=== PATIENT | female | born 1950 ===

== ENCOUNTER 2017-08-09 01:57 | Observation (INO) ==
--- NOTE | 2017-08-09 02:37 | Emergency Department Note ---
Disposition Clinical Impression: Stroke-like symptoms, Left facial numbness, Left arm numbness Disposition: Admitted As Inpatient Condition: Fair Referrals: Alfred Kaur MD [Primary Care Provider] - Forms: ED Satisfaction Letter, Work/School Release Time of Disposition: 04:38 General Adult HPI - General Chief complaint: ED General Medical Stated complaint: "Facial and Left Arm Numbness" Time Seen by Provider: 08/09/17 02:05 Source: patient Mode of arrival: ambulatory Limitations: no limitations Nursing Notes Reviewed: Yes Vital Signs Reviewed: Yes - History of Present Illness HPI Narrative: Patient is a 67-year-old female that presents to the emergency department for numbness to her left face and left arm. She states that this began approximately 36 hours ago after receiving an injection in her left shoulder. Patient states that she felt that her symptoms may be related to the injection. She called her doctor and he told her that the symptoms should not be present after the injection and told her if they have persisted to go to the emergency department. Patient denies any numbness, weakness or tingling outside of the face and left arm. Patient denies any issues with speech. Pain Scale: 1 - Related Data Home Medications Medication Instructions Recorded Confirmed Estradiol [Estrace] 1 mg PO DAILY 01/30/16 01/30/16 Levothyroxine Sodium [Levoxyl] 125 mcg PO DAILY 01/30/16 01/30/16 Lipase/Protease/Amylase [Creon Dr 2 tab PO TID 01/30/16 01/30/16 24,000 Units Capsule] Metoprolol Succinate [Toprol Xl] 50 mg PO DAILY 01/30/16 01/30/16 Rizatriptan Benzoate [Maxalt] 10 mg PO DAILY PRN 01/30/16 01/30/16 Allergies Allergy/AdvReac Type Severity Reaction Status Date / Time moxifloxacin [From Avelox] Allergy Rash Verified 01/30/16 10:39 ivp dye Allergy Rash Uncoded 01/30/16 10:39 All systems ED: reviewed and negative except as stated. Constitutional: Denies: fever, chills Cardiovascular: Denies: chest pain Respiratory: Denies: dyspnea Gastrointestinal: Denies: abdominal pain, nausea, vomiting Genitourinary: Denies: urgency, dysuria, frequency Neurological: Reports: numbness (Left face and left arm.). Denies: headache, weakness, paresthesias Past Medical History - Past Medical History Medical history: Reports: hypertension, thyroid disease Surgical history: Reports: hysterectomy Psychiatric history: Reports: no psych history - Social History Smoking Status: Never smoker Smokeless Tobacco Status: No Alcohol use: Reports: none Drug use: Reports: none Physical Exam - General Limitations: no limitations General appearance: alert, in no apparent distress - Head Head exam: atraumatic, normocephalic - Eye Eye exam: Present: normal appearance, EOMI - Neck Neck exam: Present: normal inspection, full ROM, trachea midline - Respiratory Respiratory exam: Present: normal lung sounds bilaterally. Absent: respiratory distress, wheezes - Cardiovascular Cardiovascular exam: Present: regular rate, normal rhythm, normal heart sounds, +S1, +S2 - Abdominal Exam Abdominal exam: Present: soft, Non-Tender, normal bowel sounds - Neurological Exam Neurological exam: Present: alert, oriented X3 - Expanded Neurological Exam Speech: Present: fluid speech Cranial nerves: EOM function (II, III, IV, ): Normal, facial sensation (V): Abnormal Left, facial palsy (VII): Normal, gag reflex (IX): Normal, spinal accessory function (XI): Normal, tongue deviation (XII): Normal Cerebellar function: finger to nose: Normal, heel to julien: Normal Motor strength - LUE: 5/5 Motor strength - RUE: 5/5 Motor strength - LLE: 5/5 Motor strength - RLE: 5/5 Upper motor neuron exam: pronator drift: Absent bilaterally Sensory exam upper extremity: light touch: Abnormal Left Sensory exam lower extremity: light touch: Normal Coma Scale Eye Opening: Spontaneous Coma Scale Motor Response: Obeys Commands Coma Scale Verbal Response: Oriented Coma Scale Total: 15 - Psychiatric Psychiatric exam: Present: normal affect, normal mood - Skin Skin exam: Present: warm, dry, intact Course Vital Signs Temperature 97.6 F 08/09/17 01:59 Pulse Rate 59 08/09/17 01:59 Respiratory Rate 18 08/09/17 01:59 Blood Pressure 157/79 08/09/17 01:59 O2 Sat by Pulse Oximetry 97 08/09/17 01:59 Temperature 97.6 F 08/09/17 02:13 Pulse Rate 83 08/09/17 03:14 Respiratory Rate 08/09/17 03:14 Blood Pressure 121/73 08/09/17 03:14 O2 Sat by Pulse Oximetry 97 08/09/17 03:14 Oxygen Delivery Oxygen Delivery Room Air Medical Decision Making - MDM Narrative Medical decision making narrative: Due to the patient presenting to the emergency department with neurologic symptoms the face and left arm there is concern for possible stroke. We will obtain Junior for testing including a CBC, BMP, troponin chest x-ray, EKG, CT of the patient's head to evaluate for possible intracranial abnormality. Due to these patient's symptoms beginning approximately 36 hours ago the patient was outside any window for TPA so no stroke alert was called. The only deficits that the patient had at this time was numbness to the left side of the face and left arm. CT scan showed no acute intracranial abnormality. Chest x- ray did not show any acute process. Patient's EKG showed a sinus bradycardia. Rate of her laboratory testing was unremarkable. However due to the patient having numbness to the face and left arm there is concern for neurologic symptoms the patient will need to be admitted to the hospital for further evaluation and management. I called and spoke with Dr. Cuevas and he has accepted the patient to his service. The patient will be admitted to the hospital at this time for further evaluation and management. - Medical Records Medical records reviewed: Yes I reviewed the patient's medical records. - Lab Data Lab results reviewed: Yes I reviewed the patient's lab results. Result diagrams: 08/09/17 02:29 08/09/17 02:29 Lab Results 08/09/17 08/09/17 08/09/17 Range/Units 02:29 02:29 02:29 WBC 11.0 (4.3-11.1) K/mcL RBC 4.72 (3.82-4.97) M/mcL Hgb 15.3 (11.5-15.4) g/dL Hct 44.0 (35.3-44.9) % MCV 93.2 (83.0-100.0) fL MCH 32.4 (28.0-33.3) pg MCHC 34.8 (31.6-35.5) g/dL RDW 12.4 (11.5-14.5) % Plt Count 236 (140-400) K/mcL MPV 9.3 L (9.4-12.4) fL Immature Gran % 0.4 (0-4) % Seg Neutrophils % 64.8 % Lymphocytes % 24.8 % Monocytes % 7.3 % Eosinophils % 2.2 % Basophils % 0.5 % Neutrophils # 7.2 (1.6-8.9) K/mcL Lymphocytes # 2.7 (0.6-4.6) K/mcL Monocytes # 0.8 (0.0-1.3) K/mcL Eosinophils # 0.2 (0.0-0.6) K/mcL Basophils # 0.1 (0.0-0.2) K/mcL PT 10.6 (9.4-12.1) Seconds INR 1.0 APTT 32.5 (26.0-36.0) Seconds Sodium 138 (136-145) mEq/L Potassium 3.9 (3.5-5.1) mEq/L Chloride 103 (98-107) mEq/L Carbon Dioxide 26 (23-29) mEq/L BUN 26 H (8-23) mg/dL Creatinine 0.94 (0.60-1.20) mg/dL Est GFR ( Amer) > 60 (> 60) Est GFR (Non-Af Amer) 59 L (> 60) BUN/Creatinine Ratio 28 H (6-26) Glucose 101 (70-105) mg/dL Calculated Osmolality 291 (280-300) Calcium 10.0 (8.6-10.3) mg/dL Troponin I < 0.03 (< 0.04) ng/mL - Radiology Data Radiology results reviewed: Yes I reviewed the patient's radiology results. Head CT 08/09/17 02:16 IMPRESSION: No acute intracranial abnormality. D/ / Francois Wynn MD / Francois Wynn MD Interpreting Provider: Francois Wynn MD Chest X-Ray 08/09/17 02:45 IMPRESSION: 1. No acute cardiopulmonary disease. D/ / Francois Wynn MD / Francois Wynn MD Interpreting Provider: Francois Wynn MD - EKG Data EKG #1 EKG attestation: Yes I reviewed and interpreted this EKG. EKG results narrative: EKG shows a sinus bradycardia at a rate of 51 bpm, NM interval of 181, QRS duration of 97, QTc of 415 with a normal axis. No evidence of STEMI and EKG.
[2017-08-09 02:42] LABS: Basophils # 0.1 K/mcL (0.0-0.2); Basophils % 0.5 %; Eosinophils # 0.2 K/mcL (0.0-0.6); Eosinophils % 2.2 %; Hemoglobin 15.3 g/dL (11.5-15.4); Immature Granulocytes % 0.4 % (0-4); Lymphocytes # 2.7 K/mcL (0.6-4.6); Lymphocytes % 24.8 %; Mean Corpuscular HGB Conc 34.8 g/dL (31.6-35.5); Mean Corpuscular Hemoglobin 32.4 pg (28.0-33.3); Mean Corpuscular Volume 93.2 fL (83.0-100.0); Mean Platelet Volume 9.3 fL (9.4-12.4); Monocytes # 0.8 K/mcL (0.0-1.3); Monocytes % 7.3 %; Neutrophils # 7.2 K/mcL (1.6-8.9); Platelet Count 236 K/mcL (140-400); Red Blood Count 4.72 M/mcL (3.82-4.97); Red Cell Distribution Width 12.4 % (11.5-14.5); Segmented Neutrophils % 64.8 %
[2017-08-09 02:48] LABS: Prothrombin Time 10.6 Seconds (9.4-12.1)
[2017-08-09 02:50] LABS: Activated Partial Thrombo Time 32.5 Seconds (26.0-36.0)
[2017-08-09 03:04] LABS: BUN/Creatinine Ratio 28 (6-26); Blood Urea Nitrogen 26 mg/dL (8-23); Carbon Dioxide 26 mEq/L (23-29); Chloride 103 mEq/L (98-107); Glucose 101 mg/dL (70-105); Osmolality,Calculated 291 (280-300); Potassium 3.9 mEq/L (3.5-5.1); Sodium 138 mEq/L (136-145); eGFR For African Americans > 60 (> 60); eGFR For Non-African Americans 59 (> 60)
[2017-08-09 03:05] LABS: Troponin I < 0.03 ng/mL (< 0.04)
--- NOTE | 2017-08-09 04:17 | Emergency Department Note ---
Disposition Clinical Impression: Stroke-like symptoms, Left facial numbness, Left arm numbness Disposition: Admitted As Inpatient Condition: Fair Referrals: Alfred Kaur MD [Primary Care Provider] - Forms: ED Satisfaction Letter, Work/School Release General Adult HPI - General Chief complaint: ED General Medical Stated complaint: "Facial and Left Arm Numbness" Time Seen by Provider: 08/09/17 02:05 Source: patient Mode of arrival: ambulatory Limitations: no limitations Nursing Notes Reviewed: Yes Vital Signs Reviewed: Yes - History of Present Illness Pain Scale: 1 - Related Data Home Medications Medication Instructions Recorded Confirmed Estradiol [Estrace] 1 mg PO DAILY 01/30/16 01/30/16 Levothyroxine Sodium [Levoxyl] 125 mcg PO DAILY 01/30/16 01/30/16 Lipase/Protease/Amylase [Creon Dr 2 tab PO TID 01/30/16 01/30/16 24,000 Units Capsule] Metoprolol Succinate [Toprol Xl] 50 mg PO DAILY 01/30/16 01/30/16 Rizatriptan Benzoate [Maxalt] 10 mg PO DAILY PRN 01/30/16 01/30/16 Allergies Allergy/AdvReac Type Severity Reaction Status Date / Time moxifloxacin [From Avelox] Allergy Rash Verified 01/30/16 10:39 ivp dye Allergy Rash Uncoded 01/30/16 10:39 Constitutional: Denies: fever, chills Cardiovascular: Denies: chest pain Respiratory: Denies: dyspnea Gastrointestinal: Denies: abdominal pain, nausea, vomiting Genitourinary: Denies: urgency, dysuria, frequency Neurological: Reports: numbness (Left face and left arm.). Denies: headache, weakness, paresthesias Past Medical History - Past Medical History Medical history: Reports: hypertension, thyroid disease Surgical history: Reports: hysterectomy Psychiatric history: Reports: no psych history - Social History Smoking Status: Never smoker Smokeless Tobacco Status: No Alcohol use: Reports: none Drug use: Reports: none Physical Exam - General Limitations: no limitations General appearance: alert, in no apparent distress Course Vital Signs Temperature 97.6 F 08/09/17 01:59 Pulse Rate 59 08/09/17 01:59 Respiratory Rate 18 08/09/17 01:59 Blood Pressure 157/79 08/09/17 01:59 O2 Sat by Pulse Oximetry 97 08/09/17 01:59 Temperature 97.6 F 08/09/17 02:13 Pulse Rate 83 08/09/17 03:14 Respiratory Rate 18 08/09/17 03:14 Blood Pressure 121/73 08/09/17 03:14 O2 Sat by Pulse Oximetry 97 08/09/17 03:14 Oxygen Delivery Oxygen Delivery Room Air Medical Decision Making - Lab Data Result diagrams: 08/09/17 02:29 08/09/17 02:29 Lab Results 08/09/17 08/09/17 08/09/17 Range/Units 02:29 02:29 02:29 WBC 11.0 (4.3-11.1) K/mcL RBC 4.72 (3.82-4.97) M/mcL Hgb 15.3 (11.5-15.4) g/dL Hct 44.0 (35.3-44.9) % MCV 93.2 (83.0-100.0) fL MCH 32.4 (28.0-33.3) pg MCHC 34.8 (31.6-35.5) g/dL RDW 12.4 (11.5-14.5) % Plt Count 236 (140-400) K/mcL MPV 9.3 L (9.4-12.4) fL Immature Gran % 0.4 (0-4) % Seg Neutrophils % 64.8 % Lymphocytes % 24.8 % Monocytes % 7.3 % Eosinophils % 2.2 % Basophils % 0.5 % Neutrophils # 7.2 (1.6-8.9) K/mcL Lymphocytes # 2.7 (0.6-4.6) K/mcL Monocytes # 0.8 (0.0-1.3) K/mcL Eosinophils # 0.2 (0.0-0.6) K/mcL Basophils # 0.1 (0.0-0.2) K/mcL PT 10.6 (9.4-12.1) Seconds INR 1.0 APTT 32.5 (26.0-36.0) Seconds Sodium 138 (136-145) mEq/L Potassium 3.9 (3.5-5.1) mEq/L Chloride 103 (98-107) mEq/L Carbon Dioxide 26 (23-29) mEq/L BUN 26 H (8-23) mg/dL Creatinine 0.94 (0.60-1.20) mg/dL Est GFR ( Amer) > 60 (> 60) Est GFR (Non-Af Amer) 59 L (> 60) BUN/Creatinine Ratio 28 H (6-26) Glucose 101 (70-105) mg/dL Calculated Osmolality 291 (280-300) Calcium 10.0 (8.6-10.3) mg/dL Troponin I < 0.03 (< 0.04) ng/mL Attestation Statement - Attestation Attestation: I, Fabio Fulton MD, personally evaluated this patient and discussed their management with the resident physician. I reviewed the resident's note and agree with the documented findings, medical decision making, and plan of care. 67-year-old female presents to the emergency department with a complaint of numbness in the left side of the face left shoulder, and left upper extremity which started 36 hours prior to arrival. Patient received a steroid injection in her left shoulder about noon on Saturday. About 2 PM she developed this numbness in the face and left arm. She states the numbness has been constant since onset. It has not worsened or improved and has not gone away and come back. No weakness. No difficulty with speech or swallowing or balance. No headache. No blurred vision or double vision. No prior history of TIA or CVA. She does have a history of hypertension. On examination patient is a well-developed well-nourished elderly female in no acute distress. She is alert and oriented 3. There is no cyanosis or diaphoresis. Breath sounds are clear and equal bilaterally. Heart regular rate and rhythm. Abdomen soft and nontender with normal bowel sounds. There is decreased sensation over the left side of the face, left shoulder, and left arm. 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 No motor deficits. Labs reviewed. EKG shows a sinus bradycardia with ventricular rate of 51. Possible inferior HI, probably old. No acute ST segment elevation or depression. No arrhythmia or ectopy. Head CT shows no acute intracranial abnormality. Chest x-ray negative. The hospitalist, Dr. Nagel, was consulted and accepted admission of the patient.
[2017-08-09] MEDS ORDERED: Aspirin 81 MG TAB.CHEW PO STA (04:29)
[2017-08-09] MEDS ORDERED: Naloxone 0.4 MG/ML INJ IVP PRN ×2 (05:34→05:35)
[2017-08-09] MEDS ORDERED: Acetaminophen 325 MG TABLET PO PRN (05:35)
--- NOTE | 2017-08-09 05:59 | Internal Med History&Physical ---
Date of Encounter: 08/09/17 Time of Encounter: 05:57 Internal Medicine - H&P: HPI Chief complaint: left arm and face numbness Admitted From: Emergency Dept Plans for Post Hospital Care: Home History of present illness: Ms. Castle is a 67 year old female with history of hypertension, hypothyroidism , and arthritis who presents she has been complaining of left upper extremity numbness and tingling as well as left side of the face numbness and tingling since Saturday. The patient on Saturday went to PCP and had a left shoulder steroid/lidocaine injection and 2 hours after that she started having left upper extremity numbness. Later on she started having left facial numbness. The patient called her PCP and was advised that if her symptoms do not resolve to go to the ED. She denies any motor deficits. Denies dysarthria. No facial droop. Denies any fever, chills, nausea, vomiting, chest pain, shortness of breath, abdominal pain, diarrhea, constipation, or urinary symptoms. In the ED workup was unremarkable including labs and CT head and EKG. The patient was noted to be bradycardic in the 50s confirmed on an EKG. The patient tells me that she is always been bradycardic and has been on a beta morgan for many years with no issues. Past Med Surg Social Fam HX - Past Medical History Medical history: hypertension, thyroid disease Psychiatric history: no psych history - Past Surgical History Surgical History: hysterectomy - Social History Smoking Status: Never smoker Smokeless Tobacco Status: No Alcohol use: none Drug use: none Internal Medicine - H&P: Meds Estradiol [Estrace] 1 mg PO DAILY 01/30/16 [History] Levothyroxine Sodium [Levoxyl] 125 mcg PO DAILY 01/30/16 [History] Lipase/Protease/Amylase [Creon Dr 24,000 Units Capsule] 2 tab PO TID 01/30/16 [ History] Metoprolol Succinate [Toprol Xl] 50 mg PO DAILY 01/30/16 [History] Rizatriptan Benzoate [Maxalt] 10 mg PO DAILY PRN 01/30/16 [History] 3 Allergy/AdvReac Type Severity Reaction Status Date / Time moxifloxacin [From Avelox] Allergy Rash Verified 01/30/16 10:39 ivp dye Allergy Rash Uncoded 01/30/16 10:39 All Systems PM: A 10-system review of systems was performed and is negative for pertinent findings except as documented above in the HPI. Review of systems: All systems reviewed are negative except for as mentioned above - Constitutional Vitals: Temp Pulse Resp BP Pulse Ox 97.6 F 83 18 121/73 97 08/09/17 02:13 08/09/17 03:14 08/09/17 03:14 08/09/17 03:14 08/09/17 03:14 Exam: GEN: NAD HEENT: AT, NC, No cyanosis, oral mucosa is moist, No JVD Lymphatics: No lymphadenoapthy Eyes: Extrocular muscles intact, anicteric CVS:RRR. S1, S2, No m/r/g RESP: CTAB ABD: Soft, NT, ND, +BS EXT: No edema, No rashes, 2+ DP NEURO: Patient has sensory deficits to bilateral touch on the left side of the face in all distributions of cranial nerve V as well as sensory deficit to light touch in the dorsal aspect of the left upper extremity., CN II-XII intact , No focal motor deficits Psych: Cooperative, Not anxious or depressed Internal Med - H&P Results - Labs CBC & Chem 7: 08/09/17 02:29 08/09/17 02:29 Labs: Short CBC 08/09/17 Range/Units 02:29 WBC 11.0 (4.3-11.1) K/mcL Hgb 15.3 (11.5-15.4) g/dL Hct 44.0 (35.3-44.9) % Plt Count 236 (140-400) K/mcL Neutrophils # 7.2 (1.6-8.9) K/mcL BMP 08/09/17 02:29 Sodium 138 Potassium 3.9 Chloride 103 Carbon Dioxide 26 BUN 26 H Creatinine 0.94 Glucose 101 Calcium 10.0 Cardiac Enzymes 08/09/17 Range/Units 02:29 Troponin I < 0.03 (< 0.04) ng/mL - Impressions ITS Impressions Head CT 08/09/17 02:16 IMPRESSION: No acute intracranial abnormality. D/ / Francois Wynn MD / Francois Wynn MD Interpreting Provider: Francois Wynn MD Chest X-Ray 08/09/17 02:45 IMPRESSION: 1. No acute cardiopulmonary disease. D/ / Francois Wynn MD / Francois Wynn MD Interpreting Provider: Francois Wynn MD - Assessment and plan (1) Left facial numbness Current Visit: Yes Status: Acute Assessment and plan: Associated with left arm, forearm, and hand numness on the dorsum. Patient has sensory deficits on my exam to light touch. No other neurological deficits. The left upper extremity could possibly be explained by the recent steroid/ lidocaine injection but I have no explanation for the left facial numbness. Will admit to tele for TIA/CVA work up. MRI brain. TTE. Carotids US. Check lipid panel, A1c, TSH. Check B12. (2) Left arm numbness Current Visit: Yes Status: Acute Assessment and plan: as above (3) Hypertension Current Visit: Yes Status: Acute Assessment and plan: c/w home antihypertensives Qualifiers: Hypertension type: essential hypertension Qualified Code(s): I10 - Essential (primary) hypertension (4) Hypothyroidism Current Visit: Yes Status: Acute Assessment and plan: c/w latricia synthroid. check TSH Qualifiers: Hypothyroidism type: unspecified Qualified Code(s): E03.9 - Hypothyroidism , unspecified (5) DVT prophylaxis Current Visit: Yes Status: Acute Assessment and plan: Heparin SQ - Time Spent With Patient Total time spent is greater than 50% in coordination of care (as documented) at patient's floor/unit and/or counseling patient:
[2017-08-09 06:30] LABS: Chol/HDL Ratio 3.2 (0-4.9); Cholesterol 252 mg/dL (< 200); HDL Cholesterol 78 mg/dL (40-59); LDL Cholesterol,Calculated 135 mg/dL (0-99); Triglycerides 194 mg/dL (< 150)
[2017-08-09] MEDS: *HR* Heparin 5,000 UNIT/ML VIAL SQ SCH ×3 (07:39→21:23)
[2017-08-09 08:30] LABS: Estimated Average Glucose 128 mg/dl; Hemoglobin A1C 6.1 %
[2017-08-09] MEDS: Aspirin Enteric Coated 81 MG Tablet PO SCH (09:40)
--- NOTE | 2017-08-09 19:37 | Internal Med Progress Note ---
Date of Encounter: 08/09/17 Time of Encounter: 12:25 - Assessment and plan (1) Left facial numbness Current Visit: Yes Status: Acute Assessment and plan: Associated with left arm, forearm, and hand numness s/p left shoulder injection. Patient has sensory deficits on my exam to light touch to left arm and left face. No other neurological deficits. The left upper extremity could possibly be explained by the recent steroid/ lidocaine injection but I have no explanation for the left facial numbness. Head CT is negative. Chest x-ray is negative for any acute cardiopulmonary process. Brain MRI showed no acute infarct, there is mild chronic small vessel ischemic changes. Carotids are normal throughout. Echocardiogram shows an LVEF of 60%, moderate LV DD no evidence of PFO and no significant valvular dysfunction. Patient has no electrolyte abnormalities, B12 is within normal limits. Continue to monitor patient (2) Left arm numbness Current Visit: Yes Status: Acute Assessment and plan: Plan as above. (3) Hypertension Current Visit: Yes Status: Acute Assessment and plan: Blood pressure stable. Continue home medications. Qualifiers: Hypertension type: essential hypertension Qualified Code(s): I10 - Essential (primary) hypertension (4) Hypothyroidism Current Visit: Yes Status: Acute Assessment and plan: Chronic. Continue home medications. Qualifiers: Hypothyroidism type: unspecified Qualified Code(s): E03.9 - Hypothyroidism , unspecified (5) DVT prophylaxis Current Visit: Yes Status: Acute Assessment and plan: Heparin SQ 3 times daily. Encourage ambulation. - Time Spent With Patient Total time spent is greater than 50% in coordination of care (as documented) at patient's floor/unit and/or counseling patient: less than 15 minutes - Subjective Interval history: Patient was seen and assessed at bedside at 1230, at bedside. Pt states that numbness is improving to left arm. She denies any headache, nausea, vomiting, diaphoresis or abdominal pain. She denies any chest pain or shortness of breath. Patient has no facial droop and states that the facial numbness is also improving. - Constitutional Vitals: Temp Pulse Resp BP Pulse Ox 97.6 F 52 14 132/74 95 08/09/17 14:50 08/09/17 14:50 08/09/17 14:50 08/09/17 14:50 08/09/17 14:50 General appearance: Present: cooperative, pleasant, no acute distress, answers questions appropriately - Head Head exam: Present: atraumatic, normal inspection, normocephalic - Eye Eye exam: Present: EOMI, normal appearance, conjuntiva pink, sclera anicteric. Absent: nystagmus - Neck Neck exam general surgery: Present: normal inspection, supple, trachea midline. Absent: lymphadenopathy - Respiratory Respiratory exam: Present: CTAB. Absent: accessory muscle use, rales, rhonchi, wheezes - Cardiovascular Cardiovascular exam: Present: RRR, +S1, +S2. Absent: diastolic murmur, gallop, rubs, systolic murmur - GI/Abdominal GI/Abdominal exam: Present: normal bowel sounds, soft. Absent: distended, hepatomegaly, tenderness - Extremities Exam Extremities exam: Present: normal capillary refill, normal inspection, warm, radial pulses palpable and symmetrical. Absent: calf tenderness, cyanotic, pedal edema, tenderness - Neurological Exam Neurological exam: Present: alert, CN II-XII intact, oriented X3, no focal deficits, strengths equal and symetr throughout. Absent: altered, motor sensory deficit, facial droop, speech deficit - Skin Skin exam: Present: dry, intact, normal color, warm. Absent: rash Internal Medicine: Result - Labs CBC & Chem 7: 08/09/17 02:29 08/09/17 02:29 - ABG Interpretation ABG results: PT/INR, D-dimer PT 11.0 Seconds (9.4-12.1) 08/09/17 06:29 Consult Discharge Plan - Plan Referrals: Alfred Kaur MD [Primary Care Provider] -
[2017-08-10 04:54] LABS: Basophils % 0.5 %; Eosinophils # 0.2 K/mcL (0.0-0.6); Eosinophils % 2.4 %; Hematocrit 39.3 % (35.3-44.9); Immature Granulocytes % 0.4 % (0-4); Lymphocytes # 2.4 K/mcL (0.6-4.6); Lymphocytes % 28.4 %; Mean Corpuscular HGB Conc 34.6 g/dL (31.6-35.5); Mean Corpuscular Hemoglobin 32.1 pg (28.0-33.3); Mean Corpuscular Volume 92.7 fL (83.0-100.0); Mean Platelet Volume 9.4 fL (9.4-12.4); Monocytes # 0.6 K/mcL (0.0-1.3); Monocytes % 6.6 %; Neutrophils # 5.2 K/mcL (1.6-8.9); Nucleated Red Blood Cells 0.4 /100 WBC (0); Platelet Count 211 K/mcL (140-400); Red Blood Count 4.24 M/mcL (3.82-4.97); Red Cell Distribution Width 12.4 % (11.5-14.5); Segmented Neutrophils % 61.7 %
[2017-08-10 05:00] LABS: Hemoglobin 13.6 g/dL (11.5-15.4)
[2017-08-10 05:07] LABS: BUN/Creatinine Ratio 27 (6-26); Blood Urea Nitrogen 22 mg/dL (8-23); Calcium 9.3 mg/dL (8.6-10.3); Carbon Dioxide 26 mEq/L (23-29); Chloride 104 mEq/L (98-107); Glucose 91 mg/dL (70-105); Magnesium 1.5 mg/dL (1.6-2.6); Osmolality,Calculated 289 (280-300); Potassium 3.7 mEq/L (3.5-5.1); Sodium 138 mEq/L (136-145); eGFR For African Americans > 60 (> 60); eGFR For Non-African Americans > 60 (> 60)
[2017-08-10] MEDS: *HR* Heparin 5,000 UNIT/ML VIAL SQ SCH (05:38)
--- NOTE | 2017-08-10 08:27 | Electrocardiograph Report ---
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
[2017-08-10] MEDS: Aspirin Enteric Coated 81 MG Tablet PO SCH (09:24)
[2017-08-10 10:33] VITALS: BP 153/92
--- NOTE | 2017-08-10 13:06 | Discharge Summary ---
Date of Encounter: 08/10/17 Time of Encounter: 11:50 - Discharge Diagnosis (1) Left facial numbness Priority: Secondary Status: Acute Assessment and Plan: Associated with left arm, forearm, and hand numness s/p left shoulder injection. Pt reports that numbness to left arm and left face have resolved. No focal deficits noted. Reports complete resolution of symptoms. Head CT is negative. Chest x-ray is negative for any acute cardiopulmonary process. Brain MRI showed no acute infarct, there is mild chronic small vessel ischemic changes. Carotids are normal throughout. Echocardiogram shows an LVEF of 60%, moderate LV DD no evidence of PFO and no significant valvular dysfunction. Patient has no electrolyte abnormalities, B12 is within normal limits. (2) Left arm numbness Priority: Secondary Status: Acute Assessment and Plan: Plan as above. (3) Hypertension Priority: Secondary Status: Chronic Assessment and Plan: Chronic. Well controlled. Continue home medications. Qualifiers: Hypertension type: essential hypertension Qualified Code(s): I10 - Essential (primary) hypertension (4) Hypothyroidism Priority: Secondary Status: Chronic Assessment and Plan: Chronic. Continue home medications. Check labs when pt not acutely ill. Qualifiers: Hypothyroidism type: unspecified Qualified Code(s): E03.9 - Hypothyroidism , unspecified (5) DVT prophylaxis Priority: Secondary Status: Acute Hospital course: Ms. Castle is a 67 year old female with PMH HTN, hypothyroidism. She presented to the ED with c/o left facial numbness and left arm numbness after steroid injection into left shoulder for arthritis. Pt had no weakness or decreased ROM , neurologically intact other than numbness. Head CT and MRI brain negative for acute infarct. Carotids normal throughout by doppler. Echo LVEF 60%, moderate LVDD, no eivdence of PFO and no significant valvular dysfunction. Pt's labs and vitals are WNL and stable. Pt reports complete resolution of symptoms today. Pt is stable and ready for discharge. Discharge discussed with: patient, family - Time Spent with Patient Total time spent providing and/or coordinating discharge services: Less than 30 minutes - Discharge Medications Home Medications: Estradiol [Estrace] 1 mg PO DAILY 01/30/16 [History] Lipase/Protease/Amylase [Creon Dr 24,000 Units Capsule] 2 tab PO TID 01/30/16 [ History] Metoprolol Succinate [Toprol Xl] 50 mg PO DAILY 01/30/16 [History] Rizatriptan Benzoate [Maxalt] 10 mg PO DAILY PRN 01/30/16 [History] Cyclobenzaprine HCl 5 mg PO HS PRN 08/09/17 [History] Diphenoxylate/Atropine [Lomotil 2.5 mg/0.025 mg] 1 tab PO QID PRN 08/09/17 [ History] Ergocalciferol (VITAMIN D2) [Vitamin D2] 50,000 unit PO QWEEK 08/09/17 [History] Levothyroxine Sodium [Levoxyl] 112 mcg PO DAILY 08/09/17 [History] Lisinopril [Zestril] 10 mg PO DAILY 08/09/17 [History] Meloxicam [Mobic] 15 mg PO DAILY 08/09/17 [History] Rosuvastatin Calcium [Crestor] 10 mg PO DAILY 08/09/17 [History] hydroCHLOROthiazide [Hydrochlorothiazide] 25 mg PO DAILY 08/09/17 [History] Aspirin Enteric Coated [Aspirin EC] 81 mg PO DAILY tablet. 08/10/17 [Rx] Allergies/Adverse Reactions: 3 Allergy/AdvReac Type Severity Reaction Status Date / Time moxifloxacin [From Avelox] Allergy Rash Verified 01/30/16 10:39 ivp dye Allergy Rash Uncoded 01/30/16 10:39 Date of admission: 08/09/17 06:08 Primary care physician: Alfred Kaur MD Discharging clinician: Gloria Mazariegos Anticipated date of discharge: 08/10/17 - Constitutional Vitals: Temp Pulse Resp BP Pulse Ox 97.4 F L 69 16 153/92 92 08/10/17 10:31 08/10/17 10:31 08/10/17 10:31 08/10/17 10:31 08/10/17 10:31 General appearance: Present: cooperative, pleasant, no acute distress, answers questions appropriately - Head Head exam: Present: atraumatic, normal inspection, normocephalic - Eye Eye exam: Present: normal appearance, conjuntiva pink, sclera anicteric - Neck Neck exam general surgery: Present: normal inspection, supple, trachea midline. Absent: lymphadenopathy, tenderness - Respiratory Respiratory exam: Present: CTAB. Absent: accessory muscle use, rales, rhonchi, wheezes - Cardiovascular Cardiovascular exam: Present: RRR, +S1, +S2. Absent: diastolic murmur, gallop, rubs, systolic murmur - GI/Abdominal GI/Abdominal exam: Present: normal bowel sounds, soft. Absent: distended, hepatomegaly, tenderness - Extremities Exam Extremities exam: Present: normal capillary refill, normal inspection, warm, radial pulses palpable and symmetrical. Absent: calf tenderness, cyanotic, pedal edema, tenderness - Neurological Exam Neurological exam: Present: abnormal gait, alert, CN II-XII intact, oriented X3 , no focal deficits, strengths equal and symetr throughout. Absent: altered, motor sensory deficit, facial droop, speech deficit - Skin Skin exam: Present: dry, intact, normal color, warm. Absent: rash - Patient Status Disposition: Home, Self-Care Condition: Good Functional capacity at discharge: independent ambulation Overall status at discharge: patient is back to baseline - Discharge Instructions Follow Up With: Alfred Kaur MD [Primary Care Provider] - Additional Instructions: Return to the ER as needed for any other problems or concerns, or if your symptoms return or worsen. Resume your normal medications, activities, and diet as tolerated. See your PCP in the next 3-5 days for a recheck. - Diet and Activity Activity: increase activity as tolerated Diet: advance to your usual diet
== END 2017-08-10 13:54 | disposition home or self-care (01) ==
LOC: EMEROO 01:57 → 3ANU 01:57
PROVIDERS: ADMIT Internal Medicine; ATTEND Internal Medicine